=== PATIENT | female | born 1945 | race Caucasian/White ===

== ENCOUNTER → 2022-08-01 | Outpatient (CLI) | payer MEDICARE | END | disposition home or self-care (01) | LOC: RAH 12:34 | PROVIDERS: ATTEND Student in an Organized Health Care Education/Training Program | DX: M19.071 Primary osteoarthritis, right ankle and foot (principal); M79.671 Pain in right foot | CPT/HCPCS: 73700 ==

== ENCOUNTER 2023-11-13 08:00 | Inpatient (IN) | payer MEDICARE ==
[~2023-11-13] VITALS: Ht 160 cm; Wt 64.9 kg
[2023-11-16 13:40] VITALS: BP 151/70; PULSE 69; RESP 16; TEMP 97.4
[2023-11-16 13:41] LABS: BASOPHILS # (AUTO) 0.07 K/uL (0.00-0.20); EOSINOPHILS # (AUTO) 0.21 K/uL (0.00-0.70); EOSINOPHILS % (AUTO) 2.9 % (0.0-8.0); HEMATOCRIT 31.7 % (36-48); IMMATURE GRANULOCYTE ABSOLUTE 0.03 K/uL (0-1); LYMPHOCYTES # (AUTO) 1.3 K/uL (1.0-4.8); LYMPHOCYTES % (AUTO) 18.4 % (21.0-51.0); MEAN CORPUSCULAR HEMOGLOBIN 32.9 pg (27.0-33.0); MEAN CORPUSCULAR HGB CONC 34.1 g/dL (32.0-36.0); MEAN CORPUSCULAR VOLUME 96.6 fL (79-99); MONOCYTES # (AUTO) 0.4 K/uL (0.1-1.0); MONOCYTES % (AUTO) 5.3 % (3.0-13.0); NEUTROPHILS # (AUTO) 5.1 K/uL (1.8-7.7); PLATELET COUNT (AUTO) 419 K/uL (130-400); RED BLOOD CELL COUNT(AUTO) 3.28 MIL/uL (4.00-5.50); RED CELL DISTRIBUTION WIDTH 13.9 % (11.0-15.5); WHITE BLOOD COUNT (AUTO) 7.1 K/uL (4.8-10.8)
[2023-11-16 13:52] LABS: INR 0.96 (0.85-1.15); PROTHROMBIN TIME 10.4 SEC (9.6-11.6)
[2023-11-16 13:53] LABS: PARTIAL THROMBOPLASTIN TIME 26.7 SEC (26.3-35.5)
[2023-11-16 14:11] LABS: B-TYPE NATRIURETIC PEPTIDE 40 pg/mL (0-100)
[2023-11-16] MEDS ORDERED: AMLO-257 PO (15:20)
[2023-11-16] MEDS ORDERED: SERT-439 PO (15:20)
[2023-11-16] MEDS ORDERED: LEVO112T7 PO (15:20)
[2023-11-16] MEDS ORDERED: ESTR1TAB17 PO (15:20)
[2023-11-16] MEDS ORDERED: CYCL10TA16 PO (15:20)
[2023-11-16] MEDS ORDERED: ASPI-1197 PO (15:20)
[2023-11-16] MEDS ORDERED: GABA300C PO (15:20)
[2023-11-16] MEDS ORDERED: EZET10TA81 PO (15:20)
[2023-11-16] MEDS ORDERED: LOSA50TA64 PO (15:20)
[2023-11-16] MEDS ORDERED: CLOP75TA32 PO (15:20)
[2023-11-16] MEDS ORDERED: UBID400C8 PO (15:20)
[2023-11-17] VITALS (22 sets, daily range): BP systolic 100–193; BP diastolic 37–91; PULSE 69–86; RESP 14–28; TEMP 97.8–98; O2SAT 100
[2023-11-17] MEDS: 0.9%NACL 1000ML 1,000 ML IV ONE (13:28)
[2023-11-17] MEDS ORDERED: LIDOCAINE PF 100MG/5ML (2%) SYRINGE 5ML ONE (16:36)
[2023-11-17] MEDS ORDERED: FENTanyl CITRate PF 50 MCG/1 ML 2ML VIAL ONE (16:37)
[2023-11-17] MEDS ORDERED: GLYCOPYRROLATE 0.2 MG/ML 5 ML VIAL ONE (16:37)
[2023-11-17] MEDS ORDERED: MIDAZOLAM HCL 1 MG/ML 2ML VIAL ONE (16:37)
[2023-11-17] MEDS ORDERED: NOREPINEPHRINE BITARTRATE 1 MG/1 ML ML IV ONE (16:37)
[2023-11-17] MEDS ORDERED: rocuRONium bROMide 10MG/1ML 5ML VL ONE ×2 (16:37→17:50)
[2023-11-17] MEDS ORDERED: ketaMINE 50MG/ML SYRINGE 50 MG/ML DISP.SYRIN ONE (16:37)
[2023-11-17] MEDS ORDERED: proPOFol 10 MG/ML 20ML VIAL IV ONE (16:37)
[2023-11-17] MEDS ORDERED: NEOSTIGMINE METHYLSULFATE 1MG/ML IV ONE (16:37)
[2023-11-17] MEDS ORDERED: SUCCINYLCHOLINE CHLORIDE 20 MG/ML 10 ML VIAL ONE (16:38)
[2023-11-17] MEDS ORDERED: ATROPINE 1MG SYG IVP ONE (16:38)
[2023-11-17] MEDS ORDERED: ceFAZolin SODIUM 1 GM VIAL ONE (16:48)
[2023-11-17] MEDS ORDERED: LIDOCAINE HCL 400MG/20ML VIAL ONE (16:48)
[2023-11-17] MEDS ORDERED: ATROPINE 0.4MG VIAL IJ ONE (16:48)
[2023-11-17] MEDS ORDERED: HEParin 10,000 UNIT/10ML (1,000 UNIT/ML) VIAL ONE (16:49)
[2023-11-17] MEDS ORDERED: HEParin-NS 1,000 UNIT/500 ML 1,000 ML IV ONE (16:49)
[2023-11-17] MEDS ORDERED: BUPIvacaine/PF 0.25% 30ML VIAL IJ ONE (16:50)
[2023-11-17] MEDS ORDERED: IODIXANOL 320 MG/ML 100 ML VIAL ONE (16:52)
[2023-11-17] MEDS ORDERED: dexaMETHasone SOD PHOSPHATE 10MG/ML 1ML VIAL ONE (17:23)
[2023-11-17] MEDS ORDERED: ondanSETRON 4MG INJ ONE (17:23)
[2023-11-17] MEDS ORDERED: LAbetaLOL 20MG VIAL ONE (18:58)
[2023-11-17] MEDS ORDERED: ATROPINE 1MG SYG IVP PRN (19:00)
[2023-11-17] MEDS ORDERED: CYCLOBENZAPRINE HCL 10 MG TABLET PO PRN (19:00)
[2023-11-17] MEDS: GABAPENTIN 300 MG CAPSULE PO SCH (20:07)
[2023-11-17] MEDS: LAbetaLOL 20MG SYG IV PRN (20:25)
[2023-11-17] MEDS: acetaMINOPHEN 325 MG TAB PO PRN (20:25)
[2023-11-17] MEDS: 0.9%NACL 10ML VIAL IVP SCH (20:45)
[2023-11-17] MEDS: HYDROcodone/APAP 5/325 1 TAB TABLET PO PRN (22:31)
[2023-11-18] VITALS (89 sets, daily range): BP systolic 71–157; BP diastolic 34–103; PULSE 60–101; RESP 10–25; TEMP 97.6–98.2; O2SAT 91–98
[2023-11-18] MEDS: NOREPINEPHRIN 4MG/NS 250ML 250 ML IV PRN (00:29)
[2023-11-18 04:19] LABS: HEMATOCRIT 26.8 % (36-48); MEAN CORPUSCULAR HEMOGLOBIN 32.9 pg (27.0-33.0); MEAN CORPUSCULAR HGB CONC 34.3 g/dL (32.0-36.0); MEAN CORPUSCULAR VOLUME 95.7 fL (79-99); RED BLOOD CELL COUNT(AUTO) 2.8 MIL/uL (4.00-5.50); RED CELL DISTRIBUTION WIDTH 13.8 % (11.0-15.5); WHITE BLOOD COUNT (AUTO) 12.8 K/uL (4.8-10.8)
[2023-11-18 04:32] LABS: ALBUMIN 2.8 g/dL (3.5-5.0); BILIRUBIN,TOTAL 0.2 mg/dL (0.2-1.0); CREATININE 1.1 mg/dL (0.5-1.0); POTASSIUM 4.4 mmol/L (3.5-5.1); TOTAL PROTEIN, SERUM 6.4 g/dL (6.0-8.3)
[2023-11-18] MEDS: LoSARTan 50 MG TABLET PO SCH (08:07)
[2023-11-18] MEDS: amLODIPine 5 MG TAB PO SCH (08:07)
[2023-11-18] MEDS: UBIDECARENONE 400 MG PO SCH (08:09)
[2023-11-18] MEDS: levoTHYROxine 112 MCG TABLET PO SCH (08:16)
[2023-11-18] MEDS: EZETIMIBE 10 MG TAB PO SCH (08:16)
[2023-11-18] MEDS: cloPIDOgrel 75MG TAB PO SCH (08:16)
[2023-11-18] MEDS: ASPIRIN 81MG CHEW TAB PO SCH (08:16)
[2023-11-18] MEDS: SERTraline HCL 50 MG TABLET PO SCH (08:17)
[2023-11-18] MEDS: ESTRADIOL 0.5 MG TABLET PO SCH (09:00)
[2023-11-18] MEDS: 0.9% NACL 500ML IV.SOLN 500 ML IV SCH (13:48)
[2023-11-18] MEDS: MELATONIN 5 MG TABLET PO SCH (20:13)
[2023-11-18] MEDS: MELATONIN 5 MG TABLET PO ONE ×2 (20:14)
[2023-11-19] VITALS (61 sets, daily range): BP systolic 83–159; BP diastolic 41–86; PULSE 58–86; RESP 8–32; TEMP 97.8–98; O2SAT 93–96
[2023-11-19] MEDS: levoTHYROxine 112 MCG TABLET PO SCH (06:05)
== END 2023-11-19 13:40 | disposition home or self-care (01) | DRG 36 ==
LOC: EDSTATUS 11-17 08:00 → DAHIP 11-17 09:14 → 2BH 11-17 19:18
PROVIDERS: ADMIT Hospitalist; ATTEND Hospitalist
PROC: X2AH336 Cerebral Embolic Filtration, Extracorporeal Flow Reversal Circuit from Right Common Carotid Artery, Percutaneous Approach, New Technology Group 6 (ICD-10-PCS; 2023-11-17)
PROC: 06Q Lower Veins, Repair (ICD-10-PCS; 2023-11-17)
PROC: 3E023BZ Introduction of Anesthetic Agent into Muscle, Percutaneous Approach (ICD-10-PCS; 2023-11-17)
PROC: B54MZZA Ultrasonography of Right Upper Extremity Veins, Guidance (ICD-10-PCS; 2023-11-17)
PROC: 037K3DZ Dilation of Right Internal Carotid Artery with Intraluminal Device, Percutaneous Approach (ICD-10-PCS; principal; 2023-11-17 13:00)
PROC: B3161ZZ Fluoroscopy of Right Internal Carotid Artery using Low Osmolar Contrast (ICD-10-PCS; 2023-11-17 13:00)
DX: I65.21 Occlusion and stenosis of right carotid artery (principal); I10 Essential (primary) hypertension; E78.5 Hyperlipidemia, unspecified; I35.0 Nonrheumatic aortic (valve) stenosis; R09.89 Other specified symptoms and signs involving the circulatory and respiratory systems; E66.09 Other obesity due to excess calories; I95.9 Hypotension, unspecified; Z68.25 Body mass index [BMI] 25.0-25.9, adult
CPT/HCPCS: 36415; 37215; 71045; 80048; 80053; 83880; 85025; 85027; 85610; 85730; 86850; 86900; 86901; 86923; 93005; G0378; J0330; J0461; J0690; J1100; J1644; J2001; J2250; J2405; J2704; J2710; J3010; J3490; J7030; Q9967; A4215; A4216; A4221; A4222; A4223; A4649; A4663; A6219; C-1725; C1713; C1760; C1769; C1876; C1884; C1894; J0665